=== PATIENT | female | born 1960 | race Caucasian/White ===

== ENCOUNTER 2018-07-13 16:38 | Emergency (ER) | payer SELFPAY ==
[~2018-07-13] VITALS: Ht 175.3 cm; Wt 122.7 kg
[2018-07-13 16:43] VITALS: TEMP 97
[2018-07-13] MEDS ORDERED: ROXICODONE 55 MG/TAB PO (17:22)
[2018-07-13 18:11] VITALS: BP 139/77; PULSE 80
== END 2018-07-13 18:12 | disposition home or self-care (01) ==
LOC: COL.ER 16:38
DX: S82.001A Unspecified fracture of right patella, initial encounter for closed fracture (principal); I10 Essential (primary) hypertension; W01.0XXA Fall on same level from slipping, tripping and stumbling without subsequent striking against object, initial encounter; Y92.59 Other trade areas as the place of occurrence of the external cause
CPT/HCPCS: J2405; J3010; L1846